=== PATIENT | female | born 1940 | race Native Hawaiian/Other Pacific Islander ===

== ENCOUNTER 2016-09-14 08:12 | Outpatient (CLI) | payer OTHER, BC ==
[~2016-09-14 08:12] MED LIST: ACEBUTOLOL200 MG OR; ALEVE220 MG PO; ASA LOW STR81 MG PO; BENICAR HCT1 TAB PO; BIOTIN5000 MCG PO; ESTRACE2 MG PO; FISH OIL1000 M1 OR; FRESHKOTE OP; GENTEA1 OP; GLUCO/CHOND OR; HYDR200T3 PO; LEVOTHROID137 MCG OR; LIPITOR10 MG PO; LORA10TA3 PO; LUTEIN20 MG OR; NITR100C56 PO; OSTEO BI-FLX1 TAB OR; PRESERVISION PO; RESTASIS0.05 % OP
[2016-09-14 08:50] LABS: PLATELET COUNT 185 K/uL (152-353)
[2016-09-14 09:07] LABS: POTASSIUM 3.8 mmol/L (3.6-5.2); SODIUM 134 mmol/L (136-145)
== END 2016-09-14 19:08 | disposition home or self-care (01) ==
LOC: LABW 08:12
PROVIDERS: Internal Medicine
DX: I10 Essential (primary) hypertension (principal); E03.9 Hypothyroidism, unspecified
CPT/HCPCS: 36415; 80053; 80061; 81000; 84439; 84443; 85027

== ENCOUNTER 2016-09-21 14:31 | Outpatient (CLI) | payer OTHER, BC | END 2016-09-21 16:00 | disposition home or self-care (01) | LOC: CT 14:31 | DX: M47.894 Other spondylosis, thoracic region (principal); M12.88 Other specific arthropathies, not elsewhere classified, other specified site ==

== ENCOUNTER 2016-10-26 12:41 | Outpatient (CLI) | payer OTHER, BC | END 2016-10-26 19:28 | disposition home or self-care (01) | LOC: LAB 12:41 | DX: N30.80 Other cystitis without hematuria (principal) | CPT/HCPCS: 87077; 87086; 87088; 87186 ==

== ENCOUNTER 2017-02-07 16:32 | Outpatient (CLI) | payer OTHER, BC | END 2017-02-07 21:59 | disposition home or self-care (01) | LOC: LAB 16:32 | DX: R30.0 Dysuria (principal) | CPT/HCPCS: 87077; 87086; 87088; 87186 ==

== ENCOUNTER 2017-04-10 10:26 | Outpatient (CLI) | payer OTHER, BC | END 2017-04-10 22:48 | disposition home or self-care (01) | LOC: MRI 10:26 | DX: M51.34 Other intervertebral disc degeneration, thoracic region (principal) ==

== ENCOUNTER 2017-06-13 07:40 | Outpatient (CLI) | payer OTHER, BC ==
[2017-06-13 08:31] LABS: PLATELET COUNT 187 K/uL (152-353)
== END 2017-06-13 09:00 | disposition home or self-care (01) ==
LOC: LABW 07:40
PROVIDERS: Internal Medicine
DX: I25.10 Atherosclerotic heart disease of native coronary artery without angina pectoris (principal); E03.8 Other specified hypothyroidism; R73.02 Impaired glucose tolerance (oral); I10 Essential (primary) hypertension; R82.99 Other abnormal findings in urine
CPT/HCPCS: 36415; 80053; 80061; 81000; 83036; 84439; 84443; 85027; 87077; 87086; 87088; 87186

== ENCOUNTER 2017-06-24 13:47 | Outpatient (CLI) | payer OTHER, BC | END 2017-06-24 20:27 | disposition home or self-care (01) | LOC: LABW 13:47 | DX: R19.7 Diarrhea, unspecified (principal); K64.8 Other hemorrhoids | CPT/HCPCS: 87015; 87045; 87324; 87328; 87329; 87449; 87899 ==

== ENCOUNTER 2017-07-29 19:30 | Outpatient (CLI) | payer OTHER, BC | END 2017-07-29 21:44 | disposition home or self-care (01) | LOC: LABW 19:30 | DX: M35.00 Sjogren syndrome, unspecified (principal); E03.8 Other specified hypothyroidism | CPT/HCPCS: 36415; 82306; 82607; 84439; 84443 ==

== ENCOUNTER 2018-03-19 08:01 | Outpatient (CLI) | payer OTHER, BC ==
[2018-03-19 08:47] LABS: PLATELET COUNT 167 K/uL (152-353)
[2018-03-19 09:06] LABS: POTASSIUM 4.2 mmol/L (3.6-5.2)
== END 2018-03-19 19:47 | disposition home or self-care (01) ==
LOC: LABW 08:01
PROVIDERS: Internal Medicine
DX: I10 Essential (primary) hypertension (principal); R73.02 Impaired glucose tolerance (oral); E03.9 Hypothyroidism, unspecified; I25.10 Atherosclerotic heart disease of native coronary artery without angina pectoris
CPT/HCPCS: 36415; 80053; 80061; 81000; 83036; 84439; 84443; 85027

== ENCOUNTER 2018-04-15 08:09 | Outpatient (CLI) | payer OTHER, BC | END 2018-04-15 21:00 | disposition home or self-care (01) | LOC: LABW 08:09 | DX: R74.0 Nonspecific elevation of levels of transaminase and lactic acid dehydrogenase [LDH] (principal) | CPT/HCPCS: 36415; 80076 ==

== ENCOUNTER 2018-04-18 12:17 | Outpatient (CLI) | payer OTHER, BC | END 2018-04-18 20:40 | disposition home or self-care (01) | LOC: LABW 12:17 | DX: R94.5 Abnormal results of liver function studies (principal) | CPT/HCPCS: 36415; 80074; 85610 ==

== ENCOUNTER 2018-04-28 07:41 | Outpatient (CLI) | payer OTHER, BC | END 2018-04-28 22:45 | disposition home or self-care (01) | LOC: CT 07:41 | DX: R94.5 Abnormal results of liver function studies (principal) | CPT/HCPCS: 36415; 82565; 84520; Q9963 ==

== ENCOUNTER 2018-05-08 09:11 | Outpatient (CLI) | payer OTHER, BC ==
[2018-05-08 10:14] LABS: PLATELET COUNT 211 K/uL (152-353)
[2018-05-08 10:44] LABS: POTASSIUM 3.6 mmol/L (3.6-5.2)
== END 2018-05-08 21:42 | disposition home or self-care (01) ==
LOC: LABW 09:11
PROVIDERS: Internal Medicine Gastroenterology
DX: R53.83 Other fatigue (principal); D37.6 Neoplasm of uncertain behavior of liver, gallbladder and bile ducts; R94.5 Abnormal results of liver function studies
CPT/HCPCS: 36415; 80053; 80074; 82103; 82105; 82140; 82390; 82728; 83516; 83540; 83550; 84165; 85027; 85610; 86039

== ENCOUNTER 2018-08-25 06:45 | Outpatient (CLI) | payer OTHER, BC ==
[2018-08-25 08:13] LABS: POTASSIUM 3.8 mmol/L (3.6-5.2)
== END 2018-08-25 22:55 | disposition home or self-care (01) ==
LOC: LABW 06:45
PROVIDERS: Internal Medicine Gastroenterology
DX: R94.5 Abnormal results of liver function studies (principal)
CPT/HCPCS: 36415; 80053; 81256

== ENCOUNTER 2018-09-18 07:37 | Outpatient (CLI) | payer OTHER, BC ==
[2018-09-18 07:58] LABS: PLATELET COUNT 143 K/uL (152-353)
== END 2018-09-18 19:47 | disposition home or self-care (01) ==
LOC: LABW 07:37
PROVIDERS: Internal Medicine
DX: I10 Essential (primary) hypertension (principal); E78.00 Pure hypercholesterolemia, unspecified; E03.8 Other specified hypothyroidism; R73.09 Other abnormal glucose
CPT/HCPCS: 36415; 80053; 80061; 81000; 83036; 84439; 84443; 85027

== ENCOUNTER 2018-11-11 09:47 | Outpatient (CLI) | payer OTHER, BC ==
[2018-11-11 10:07] LABS: POTASSIUM 4.9 mmol/L (3.6-5.2)
== END 2018-11-11 19:44 | disposition home or self-care (01) ==
LOC: LABW 09:47
PROVIDERS: Neurological Surgery
DX: Z01.812 Encounter for preprocedural laboratory examination (principal); Z79.01 Long term (current) use of anticoagulants; M47.26 Other spondylosis with radiculopathy, lumbar region
CPT/HCPCS: 36415; 80053

== ENCOUNTER 2018-12-03 08:49 | Outpatient (CLI) | payer OTHER, BC | END 2018-12-03 23:41 | disposition home or self-care (01) | LOC: RAD 08:49 | DX: M47.26 Other spondylosis with radiculopathy, lumbar region (principal) ==

== ENCOUNTER 2019-02-05 14:05 | Outpatient (CLI) | payer OTHER, BC | END 2019-02-05 19:57 | disposition home or self-care (01) | LOC: LAB 14:05 | DX: L02.416 Cutaneous abscess of left lower limb (principal) | CPT/HCPCS: 87070; 87205 ==

== ENCOUNTER 2019-04-13 09:27 | Inpatient (IN) | payer OTHER, BC ==
[~2019-04-13] VITALS: Ht 167.6 cm; Wt 86.0 kg
--- NOTE | 2019-04-13 09:30 | NUR ---
PT TO ROOM 1108. PT ORIENTEDTO ROOM AND CALL LIGHT. BED IN LOWEST POSITION, SRX2, CALL LIGHT IN REACH. WILL CONTINUE TO MONITOR.
[2019-04-13 10:04] VITALS: BP 115/56; TEMP 98.3; Ht 167.6 cm; Wt 86.0 kg
[2019-04-13 10:45] LABS: PLATELET COUNT 198 K/uL (152-353)
[2019-04-13 10:57] LABS: POTASSIUM 3.8 mmol/L (3.6-5.2)
[2019-04-13 12:00] VITALS: BP 121/63; TEMP 100.1
[2019-04-13 16:00] VITALS: BP 128/62; TEMP 101.6
[2019-04-13] MEDS ORDERED: LIPITOR10 MG PO (19:31)
[2019-04-13] MEDS ORDERED: LEVO0.0723 PO ×2 (19:32→19:34)
[2019-04-13 20:00] VITALS: BP 127/70; TEMP 102.3
[2019-04-14] VITALS (7 sets, daily range): BP systolic 109–133; BP diastolic 53–68; TEMP 97.4–102.5
--- NOTE | 2019-04-14 10:30 | NUR ---
IV SITE OBTAINED TO TOP LEFT HAND X 1 ATTEMPT WITH 24 G.CATH. FLUSHED FOR PATENTCY. IVF'S RESTARTED OF NS @75 CC/HR AND INFUSING WITHOUT DIFFICULTY, NAD NOTED, RESP EVEN AND UNLABORED,PT TOLERATED PROCEDURE WELL.
[2019-04-14 10:32] LABS: POTASSIUM 3.5 mmol/L (3.6-5.2)
[2019-04-15 04:00] VITALS: BP 137/68; TEMP 100.4
[2019-04-15 05:07] LABS: PLATELET COUNT 167 K/uL (152-353)
[2019-04-15 05:20] LABS: POTASSIUM 3.4 mmol/L (3.6-5.2)
[2019-04-15 08:00] VITALS: BP 131/61; TEMP 97.9
--- NOTE | 2019-04-15 12:11 | NUR ---
PT RESTING IN BED WITH EYES OPENED AND TALKING WITH THIS NURSE. NO ACUTE DISTRESS NOTED OR C/O PAIN. CALL LIGHT WITHIN REACH. WILL CONTINUE TO MONITOR.
[2019-04-15 12:30] VITALS: BP 125/69; TEMP 97.9
--- NOTE | 2019-04-15 14:37 | NUR ---
DR ROSAS MADE ROUNDS AND SEEN PT. NEW ORDER RECEIVED FOR ABD US
[2019-04-15 16:00] VITALS: BP 136/52; TEMP 98
--- NOTE | 2019-04-15 16:00 | NUR ---
THIS NURSE WAS IN PATIENT'S ROOM ATTEMPTING TO RESTART IV AND PT STATED, "THAT SHE FELT LIKE SHE HAD BEEN RUNNING, AND OUT OF BREATH". PT'S O2 SAT WAS TAKEN AND FOUND TO BE 84% ON ROOM AIR. RESPIRATORY WAS CALLED TO BEDSIDE. O2 @ 2 LPM VIA N/C WAS PLACED ON PT AND DR ROSAS WAS CALLED AND INFORMED OF PTS CONDITION. NEW ORDERS WERE RECEIVED FOR ABG, EKG, CHEST XRAY. PTS 02 CAME UP TO 92% ON 2 TRAINING DEVELOPMENT SPECIALIST VIA N/C. WILL CONTINUE TO MONITOR
--- NOTE | 2019-04-15 16:58 | NUR ---
1700 DR ALMARAZ HERE AT THIS TIME IN ROOM
--- NOTE | 2019-04-15 17:01 | NUR ---
1700 NEW ORDERS REC'D PER DR ALMARAZ FOR LABS AND PORTABLE CXR STAT. LAB NOTIFIED OF STAT ORDERS
[2019-04-15 17:45] LABS: POTASSIUM 3.8 mmol/L (3.6-5.2)
--- NOTE | 2019-04-15 17:47 | NUR ---
1750 [facility] NOTIFIED PER PT'S FAMILY'S REQUEST FOR PT TO BE TRANSFERED THERE. WHILE HOLDING FOR HOSPITALIST FOR DR ALMARAZ BED CONTROL CALLED BACK AND STATED THERE WAS NO ICU BED. DR ALMARAZ INFORMED. 1800 [facility] IN [facility] CALLED PER DR ALMARAZ'S REQUEST. INFORM GIVEN VIA PHONE AND MESSAGE LEFT FOR HOSP DR BUCKLEY WILL CALL DR ALMARAZ BACK. DR ALMARAZ INFORMED AND AWARE.
--- NOTE | 2019-04-15 18:13 | NUR ---
1814 DR ALMARAZ ON PHONE WITH DR MCKINNEY FROM [facility] IN [place].
--- NOTE | 2019-04-15 18:25 | NUR ---
182 [facility] CALLED AND ASKED AGAIN FOR [facility] TO CALL DR ALMARAZ ABOUT POSSIBLE TRANSFER. MESSAGE GIVEN THAT DR RANDHAWA WAS NOW ON AND WOULD BE PAGED AT THIS TIME.
--- NOTE | 2019-04-15 18:42 | NUR ---
3493 [facility] CALLED BACK AGAIN AFTER NO RETURN CALL FROM [facility] TO DR ALMARAZ. MESSAGE LEFT FOR NURSE SPECIALIST AT [facility] TRANSFER [facility].
--- NOTE | 2019-04-15 19:13 | NUR ---
1909 [facility] CALLED BACK AND DR ALMARAZ SPEAKING WITH DR RANDHAWA VIA PHONE AT THIS TIME.
--- NOTE | 2019-04-15 19:15 | NUR ---
1900 DR ALMARAZ SPOKE WITH DR PEÑA AT [facility] IN [place] VIA CELLPHONE CONCERNING TRANSFER OF PT. AWAITING FURTHER INFORMATION CONCERNING ACCEPTANCE AND TRANSFER.
--- NOTE | 2019-04-15 19:17 | NUR ---
191 RECENT SET OF VS TEMP 101 HR 80 RESP 16 BP 151/74 SAT 91% ON O2 AT 2L/NC
[2019-04-15 19:47] VITALS: BP 140/74; TEMP 98.1
--- NOTE | 2019-04-15 19:50 | NUR ---
NOTIFIED [facility] OF PT BEING TRANSFERRED TO [facility] TO ROOM [address] UP, REPORT GIVEN TO NURSE JOSE J OF CHANGE IN CONDITION OF DEVELOPING PNUEMONIA, AND INCREASE IN CARDIAC ENZYMES, DECREASED 02 SATS, AND SOB. [facility]
--- NOTE | 2019-04-15 21:40 | NUR ---
EMS ON FLOOR FOR TRANSPORT AT PRESENT, PT STABLE V/S-98.1,76,19,140/74,93%; IVF'S OF NS DC'D, NAD NOTED AT PRESENT.
== END 2019-04-15 21:40 | disposition short-term general hospital (02) | DRG 194 ==
LOC: MED/SURG 09:27
PROVIDERS: ADMIT Internal Medicine
DX: J18.8 Other pneumonia, unspecified organism (principal); E87.1 Hypo-osmolality and hyponatremia; E86.0 Dehydration; R50.9 Fever, unspecified; M79.7 Fibromyalgia; E03.8 Other specified hypothyroidism; M35.00 Sjogren syndrome, unspecified; I25.10 Atherosclerotic heart disease of native coronary artery without angina pectoris; I10 Essential (primary) hypertension; M48.00 Spinal stenosis, site unspecified; K04.7 Periapical abscess without sinus; R06.03 Acute respiratory distress; J20.9 Acute bronchitis, unspecified
CPT/HCPCS: 36600; 80053; 80074; 81000; 82550; 82553; 82805; 83880; 84484; 85027; 85379; 85651; 86038; 86308; 87040; 87502; 93005; 94640; 94664; 94760; J0456; J0696; J1650; J1940

== ENCOUNTER 2019-04-15 21:34 | Outpatient (CLI) | payer OTHER, BC ==
[~2019-04-15 21:34] MED LIST changes: +LEVO0.0723 PO
== END 2019-04-15 22:50 | disposition short-term general hospital (02) ==
LOC: AMB 21:34
DX: J18.8 Other pneumonia, unspecified organism (principal); R74.8 Abnormal levels of other serum enzymes
CPT/HCPCS: A0425; A0429

== ENCOUNTER 2019-05-04 06:39 | Outpatient (CLI) | payer OTHER, BC ==
[2019-05-04 07:14] LABS: POTASSIUM 4.6 mmol/L (3.6-5.2)
[2019-05-04 07:46] LABS: PLATELET COUNT 205 K/uL (152-353)
== END 2019-05-04 22:51 | disposition home or self-care (01) ==
LOC: LABW 06:39
PROVIDERS: Internal Medicine
DX: I10 Essential (primary) hypertension (principal); J18.9 Pneumonia, unspecified organism
CPT/HCPCS: 36415; 80053; 83880; 85027

== ENCOUNTER 2019-06-29 10:16 | Emergency (ER) | payer OTHER, BC ==
[~2019-06-29] VITALS: Ht 167.6 cm; Wt 85.7 kg
[2019-06-29 11:46] LABS: PLATELET COUNT 153 K/uL (152-353)
[2019-06-29 11:56] LABS: POTASSIUM 4.3 mmol/L (3.6-5.2); SODIUM 134 mmol/L (136-145)
[2019-06-29 12:22] LABS: PARTIAL THROMBOPLASTIN TIME 23.9 SECONDS (24.5-33.6)
[2019-06-29 12:30] VITALS: BP 171/88; TEMP 97.9
== END 2019-06-29 12:35 | disposition short-term general hospital (02) ==
LOC: ED 10:16
PROVIDERS: Hospitalist
DX: I62.9 Nontraumatic intracranial hemorrhage, unspecified (principal); Z79.899 Other long term (current) drug therapy
CPT/HCPCS: 80053; 80307; 80320; 81000; 82550; 82553; 83880; 84443; 84484; 85027; 85610; 85730; 93005; 99285

== ENCOUNTER 2019-07-13 08:12 | Outpatient (CLI) | payer OTHER, BC ==
[2019-07-13 08:37] LABS: PLATELET COUNT 195 K/uL (152-353)
[2019-07-13 09:27] LABS: POTASSIUM 4.1 mmol/L (3.6-5.2)
== END 2019-07-13 19:49 | disposition home or self-care (01) ==
LOC: LABW 08:12
PROVIDERS: Internal Medicine
DX: I61.1 Nontraumatic intracerebral hemorrhage in hemisphere, cortical (principal)
CPT/HCPCS: 36415; 80053; 85027

== ENCOUNTER 2019-09-24 14:02 | Outpatient (CLI) | payer OTHER, BC | END 2019-09-24 20:11 | disposition home or self-care (01) | LOC: LAB 14:02 → RAD 14:02 → LAB 20:11 | DX: R10.9 Unspecified abdominal pain (principal); K59.01 Slow transit constipation | CPT/HCPCS: 81000 ==

== ENCOUNTER 2019-10-13 17:31 | Emergency (ER) | payer OTHER, BC ==
[~2019-10-13] VITALS: Ht 167.6 cm; Wt 86.2 kg
[2019-10-13 17:43] VITALS: TEMP 98
[2019-10-13 19:35] VITALS: BP 161/78
== END 2019-10-13 19:35 | disposition home or self-care (01) ==
LOC: ED 17:31
DX: R20.2 Paresthesia of skin (principal); Z87.898 Personal history of other specified conditions
CPT/HCPCS: 99283; 99284

== ENCOUNTER 2019-11-11 10:23 | Outpatient (CLI) | payer OTHER, BC | END 2019-11-11 19:47 | disposition home or self-care (01) | LOC: RAD 10:23 | DX: M51.34 Other intervertebral disc degeneration, thoracic region (principal); R29.898 Other symptoms and signs involving the musculoskeletal system; M40.04 Postural kyphosis, thoracic region; M81.0 Age-related osteoporosis without current pathological fracture ==

== ENCOUNTER 2020-01-27 10:15 | Outpatient (CLI) | payer OTHER, BC ==
[2020-01-27 10:51] LABS: PLATELET COUNT 165 K/uL (152-353)
[2020-01-27 10:59] LABS: POTASSIUM 4.4 mmol/L (3.6-5.2)
== END 2020-01-27 23:24 | disposition home or self-care (01) ==
LOC: LABW 10:15
PROVIDERS: Dermatology
DX: L29.8 Other pruritus (principal); Z79.899 Other long term (current) drug therapy
CPT/HCPCS: 36415; 80048; 80076; 84439; 84443; 85027

== ENCOUNTER 2020-02-11 09:11 | Outpatient (CLI) | payer OTHER, BC | END 2020-02-11 23:28 | disposition home or self-care (01) | LOC: LABW 09:11 | PROVIDERS: Internal Medicine | DX: I25.10 Atherosclerotic heart disease of native coronary artery without angina pectoris (principal) | CPT/HCPCS: 36415; 80061 ==

== ENCOUNTER 2020-04-04 09:49 | Outpatient (CLI) | payer OTHER, BC | END 2020-04-04 23:13 | disposition home or self-care (01) | LOC: LABW 09:49 | PROVIDERS: ATTEND Internal Medicine | DX: E03.8 Other specified hypothyroidism (principal) | CPT/HCPCS: 36415; 84439; 84443 ==

== ENCOUNTER 2020-07-27 11:51 | Emergency (ER) | payer OTHER ==
[~2020-07-27] VITALS: Ht 167.6 cm; Wt 92.1 kg
[2020-07-27 13:07] VITALS: BP 124/79; TEMP 98
== END 2020-07-27 13:07 | disposition home or self-care (01) ==
LOC: ED 11:51
DX: M79.18 Myalgia, other site (principal); M62.830 Muscle spasm of back; W18.39XA Other fall on same level, initial encounter; Y92.098 Other place in other non-institutional residence as the place of occurrence of the external cause
CPT/HCPCS: 99282

== ENCOUNTER 2020-08-01 11:57 | Outpatient (CLI) | payer OTHER | END 2020-08-01 22:14 | disposition home or self-care (01) | LOC: RAD 11:57 | PROVIDERS: ATTEND Internal Medicine | DX: R09.1 Pleurisy (principal) ==

== ENCOUNTER 2020-10-20 08:57 | Outpatient (CLI) | payer BC ==
[2020-10-20 10:19] LABS: PLATELET COUNT 180 K/uL (152-353)
[2020-10-20 10:21] LABS: POTASSIUM 4.2 mmol/L (3.6-5.2)
== END 2020-10-20 22:44 | disposition home or self-care (01) ==
LOC: LABW 08:57
PROVIDERS: ATTEND Internal Medicine
DX: I10 Essential (primary) hypertension (principal)
CPT/HCPCS: 36415; 80053; 80061; 81000; 84439; 84443; 85027

== ENCOUNTER 2020-11-10 08:35 | Outpatient (CLI) | payer BC | END 2020-11-10 17:00 | disposition home or self-care (01) | LOC: LABW 08:35 | PROVIDERS: ATTEND Internal Medicine | DX: Z13.820 Encounter for screening for osteoporosis (principal); R73.09 Other abnormal glucose | CPT/HCPCS: 36415; 82306; 83036 ==

== ENCOUNTER 2021-02-06 09:20 | Outpatient (CLI) | payer BC | END 2021-02-06 20:13 | disposition home or self-care (01) | LOC: MAMMO 09:20 | PROVIDERS: ATTEND Internal Medicine | DX: Z12.31 Encounter for screening mammogram for malignant neoplasm of breast (principal) ==

== ENCOUNTER 2021-08-07 11:02 | Outpatient (CLI) | payer BC | END 2021-08-07 19:11 | disposition home or self-care (01) | LOC: MRI 11:02 | PROVIDERS: ATTEND Orthopaedic Surgery Foot and Ankle Surgery | DX: M76.72 Peroneal tendinitis, left leg (principal) ==

== ENCOUNTER 2021-11-21 09:10 | Outpatient (CLI) | payer BC ==
[2021-11-21 10:03] LABS: PLATELET COUNT 158 K/uL (152-353)
== END 2021-11-21 18:50 | disposition home or self-care (01) ==
LOC: LABW 09:10
PROVIDERS: ATTEND Nurse Practitioner Gerontology
DX: D72.818 Other decreased white blood cell count (principal)
CPT/HCPCS: 36415; 85027

== ENCOUNTER 2021-12-18 09:37 | Outpatient (CLI) | payer BC ==
[2021-12-18 10:24] LABS: PLATELET COUNT 178 K/uL (152-353)
[2021-12-18 10:35] LABS: POTASSIUM 4.3 mmol/L (3.6-5.2)
== END 2021-12-18 18:56 | disposition home or self-care (01) ==
LOC: LABW 09:37
PROVIDERS: ATTEND Nurse Practitioner Gerontology
DX: D72.818 Other decreased white blood cell count (principal)
CPT/HCPCS: 36415; 80053; 85027

== ENCOUNTER 2022-01-12 10:08 | Outpatient (CLI) | payer BC | END 2022-01-12 21:02 | disposition home or self-care (01) | LOC: LABW 10:08 | PROVIDERS: ATTEND Nurse Practitioner Adult Health | DX: I10 Essential (primary) hypertension (principal); Z79.899 Other long term (current) drug therapy | CPT/HCPCS: 36415; 80061; 80076 ==

== ENCOUNTER 2022-02-27 14:52 | Outpatient (CLI) | payer BC | END 2022-02-27 19:36 | disposition home or self-care (01) | LOC: MAMMO 14:52 | PROVIDERS: ATTEND Internal Medicine | DX: Z12.31 Encounter for screening mammogram for malignant neoplasm of breast (principal) ==

== ENCOUNTER 2022-05-07 09:48 | Outpatient (CLI) | payer BC ==
[2022-05-07 10:45] LABS: PLATELET COUNT 177 K/uL (152-353)
[2022-05-07 11:04] LABS: POTASSIUM 4.3 mmol/L (3.6-5.2)
== END 2022-05-07 18:55 | disposition home or self-care (01) ==
LOC: LABW 09:48
PROVIDERS: ATTEND Internal Medicine
DX: E03.9 Hypothyroidism, unspecified (principal); R30.0 Dysuria; N39.0 Urinary tract infection, site not specified; I25.10 Atherosclerotic heart disease of native coronary artery without angina pectoris; R73.02 Impaired glucose tolerance (oral)
CPT/HCPCS: 36415; 80053; 80061; 81000; 83036; 84439; 84443; 85027; 87077; 87086; 87088; 87186

== ENCOUNTER 2022-05-31 13:57 | Outpatient (CLI) | payer BC ==
[~2022-05-31] VITALS: Ht 167.6 cm; Wt 88.5 kg
[2022-05-31 14:13] VITALS: BP 114/60; TEMP 97.9
[2022-05-31 15:50] VITALS: BP 143/66; TEMP 97.3
== END 2022-05-31 19:01 | disposition home or self-care (01) ==
LOC: INF 13:57
PROVIDERS: ATTEND Internal Medicine
DX: N39.0 Urinary tract infection, site not specified (principal)
CPT/HCPCS: 96365; J0696

== ENCOUNTER 2022-06-02 14:31 | Outpatient (CLI) | payer BC ==
[~2022-06-02] VITALS: Ht 167.6 cm; Wt 88.5 kg
== END 2022-06-02 19:00 | disposition home or self-care (01) ==
LOC: INF 14:31
PROVIDERS: ATTEND Internal Medicine
DX: N39.0 Urinary tract infection, site not specified (principal)
CPT/HCPCS: 96365; J0696

== ENCOUNTER 2022-06-03 13:23 | Outpatient (CLI) | payer BC ==
[~2022-06-03] VITALS: Ht 167.6 cm; Wt 82.1 kg
== END 2022-06-03 20:36 | disposition home or self-care (01) ==
LOC: INF 13:23
PROVIDERS: ATTEND Internal Medicine
DX: N39.0 Urinary tract infection, site not specified (principal)
CPT/HCPCS: 96365; J0696

== ENCOUNTER 2022-06-04 14:01 | Outpatient (CLI) | payer BC ==
[~2022-06-04] VITALS: Ht 172.7 cm; Wt 82.1 kg
[2022-06-04 14:20] VITALS: BP 121/68; TEMP 98.2
[2022-06-04 15:08] VITALS: BP 144/73; TEMP 97.7
== END 2022-06-04 19:05 | disposition home or self-care (01) ==
LOC: INF 14:01
PROVIDERS: ATTEND Internal Medicine
DX: N39.0 Urinary tract infection, site not specified (principal)
CPT/HCPCS: 96365; J0696

== ENCOUNTER 2022-08-05 11:59 | Outpatient (CLI) | payer BC | END 2022-08-05 19:11 | disposition home or self-care (01) | LOC: LABW 11:59 | PROVIDERS: ATTEND Internal Medicine | DX: R19.7 Diarrhea, unspecified (principal) | CPT/HCPCS: 82272; 83630; 87015; 87045; 87324; 87328; 87329; 87449; 87507; 87899 ==

== ENCOUNTER 2022-09-14 09:48 | Outpatient (CLI) | payer BC | END 2022-09-14 19:35 | disposition home or self-care (01) | LOC: LABW 09:48 | PROVIDERS: ATTEND Nurse Practitioner Adult Health | DX: E78.2 Mixed hyperlipidemia (principal); I10 Essential (primary) hypertension; I25.10 Atherosclerotic heart disease of native coronary artery without angina pectoris | CPT/HCPCS: 36415; 80061; 80076 ==

== ENCOUNTER 2022-12-31 12:02 | Outpatient (CLI) | payer BC | END 2022-12-31 21:29 | disposition home or self-care (01) | LOC: CT 12:02 | PROVIDERS: ATTEND Internal Medicine | DX: G44.311 Acute post-traumatic headache, intractable (principal) ==